=== PATIENT | female | born 1960 | race Caucasian/White ===

== ENCOUNTER 2025-06-16 20:27 | Emergency (ER) | payer MEDICARE, OTHER ==
[~2025-06-16] VITALS: Ht 167.6 cm; Wt 83.0 kg
[2025-06-16] MEDS ORDERED: IOPAMIDOL 370 MG/ML 100 ML INFUS..BTL INJ ONE (22:11)
[2025-06-16] MEDS ORDERED: PEPCID20 MG PO (23:30)
[2025-06-16] MEDS: FAMOTIDINE 20 MG/2 ML VIAL IV STA (23:34)
[2025-06-16 23:40] VITALS: PULSE 63; RESP 16; TEMP 97.7
[2025-06-16 23:41] VITALS: BP 121/69; PULSE 63; RESP 16; TEMP 97.7; O2SAT 98
== END 2025-06-16 23:46 | disposition home or self-care (01) ==
LOC: FSED 20:39
DX: R10.11 Right upper quadrant pain (principal); N20.0 Calculus of kidney; I10 Essential (primary) hypertension; E11.9 Type 2 diabetes mellitus without complications; E03.9 Hypothyroidism, unspecified; F32.A Depression, unspecified
CPT/HCPCS: 74177; 80053; 80076; 81003; 84484; 85025; 99284; J1308; Q9967